=== PATIENT | female | born 1965 | race Caucasian/White ===

== ENCOUNTER 2020-03-03 09:20 | Outpatient (CLI) | payer SELFPAY ==
[2020-03-03 12:14] LABS: SARS-CoV-2 Ag Negative (Negative)
== END 2020-03-03 09:21 | disposition home or self-care (01) ==
PROVIDERS: PCP Internal Medicine; Visit Provider Internal Medicine
DX: Z20.828 Contact with and (suspected) exposure to other viral communicable diseases (principal)
CPT/HCPCS: 87426

== ENCOUNTER 2020-11-17 07:32 | Outpatient (CLI) | payer OTHER, SELFPAY ==
[2020-11-17 07:51] LABS: Basophils Absolute Auto 0.03 K/mm3 (0.00-0.10); Basophils Percent Auto 0.7 % (0.0-1.0); Eosinophils Absolute Auto 0.09 K/mm3 (0.02-0.50); Hematocrit 40.5 % (35.0-49.0); Hemoglobin 13.2 g/dL (12.0-15.0); Immature Granulocyte Absolute 0.01 K/mm3 (0.00-0.00); Immature Granulocyte Percent A 0.2 % (0.0-0.0); Lymphocytes Absolute Auto 1.65 K/mm3 (1.10-4.50); Lymphocytes Percent Auto 36.4 % (18.0-42.0); Mean Corpuscular HGB Conc 32.6 g/dL (32.0-36.0); Mean Corpuscular Hemoglobin 30.8 pg (27.0-31.0); Mean Corpuscular Volume 94.6 fL (78.0-102.0); Mean Platelet Volume 10.3 fl (9.2-11.8); Monocytes Absolute Auto 0.36 K/mm3 (0.10-0.90); Monocytes Percent Auto 7.9 % (2.0-11.0); Neutrophils Absolute Auto 2.4 K/mm3 (1.7-7.2); Neutrophils Percent Auto 52.8 % (50.0-70.0); Platelet Count Result 210 K/mm3 (150-420); Red Blood Count 4.28 M/mm3 (4.20-5.40); Red Cell Distribution Width 12.9 % (11.6-14.4); White Blood Count 4.5 K/mm3 (4.8-10.8)
[2020-11-17 07:52] LABS: Add Urine Microscopic? YES; Appearance Urine Clear (Clear); Bilirubin Urine Negative (Negative); Blood Urine Negative (Negative); Color Urine Light Yellow (Yellow); Glucose Urine UA Negative (Negative); Ketones Urine Negative (Negative); Leukocyte Esterase Ur 1+ (Negative); Nitrate Urine Negative (Negative); Protein Urine Negative (Negative); Urobilinogen Urine 0.2 mg/dL (0.2-1.0)
[2020-11-17 07:57] LABS: Bacteria Urine Trace /hpf; RBC Urine None seen /hpf (0-2); Squamous Epithelial Cell Urine Rare /hpf (Few)
[2020-11-17 09:07] LABS: Alanine Aminotransferase 21 U/L (14-59); Albumin Level 3.7 g/dL (3.4-5.0); Alkaline Phosphatase 92 U/L (46-116); Anion Gap 10 mmol/L (8-16); Aspartate Amino Transferase 16 U/L (15-37); Bilirubin,Total 0.5 mg/dL (0.00-1.00); Blood Urea Nitrogen 12 mg/dL (7-18); Calcium 8.4 mg/dL (8.5-10.1); Carbon Dioxide 28 mmol/L (21-32); Chloride 106 mmol/L (98-108); Cholesterol 208 mg/dL (0-200); Estimated Glomerular Filt Rate > 60; Glucose 113 mg/dL (70-99); HDL Direct 52 mg/dL (40-60); LDL Cholesterol Calculated 137 mg/dL (<130); Osmolality Calculated 298 mOsm/kg (285-295); Potassium 4.2 mmol/L (3.5-5.1); Sodium 144 mmol/L (136-145); Thyroid Stimulating Hormone 1.29 uIU/mL (0.36-3.74); Total Protein 6.7 g/dL (6.4-8.2); Triglycerides 95 mg/dL (0-150)
== END 2020-11-17 07:33 | disposition home or self-care (01) ==
LOC: CHSLAB 07:35
PROVIDERS: PCP Internal Medicine; Visit Provider Internal Medicine
DX: Z00.00 Encounter for general adult medical examination without abnormal findings (principal); M81.0 Age-related osteoporosis without current pathological fracture
CPT/HCPCS: 36415; 80053; 80061; 81001; 84443; 85025

== ENCOUNTER 2020-11-23 12:24 | Outpatient (CLI) | payer OTHER, SELFPAY ==
--- NOTE | ~2020-11-23 | DEXA_ITS ---
Bone Density Report Name: Barbara Ceja Age: 55 Sex: Female Ethnicity: White Date of : 1965 Indication: screening for osteoporosis; asthma or emphysema; Referring Provider: Duong Gale Study: Bone densitometry was performed. Exam Date: November 23, 2020 Accession number: [id number] Bone Density: Region BMD T-score Z-score Classification AP Spine(L1-L4) 1.030 -0.2 1.1 Normal Femoral Neck (Left) 0.658 -1.7 -0.6 Osteopenia Total Hip (Left) 0.834 -0.9 -0.1 Normal Femoral Neck (Right) 0.644 -1.8 -0.7 Osteopenia Total Hip (Right) 0.813 -1.1 -0.3 Osteopenia Femoral Neck Mean 0.651 -1.8 -0.6 Osteopenia Total Hip Mean 0.823 -1.0 -0.2 Normal World Health Organization criteria for BMD impression classify patients as: Normal (T-score at or above -1.0), Osteopenia (T-score between -1.0 and -2.5), or Osteoporosis (T-score at or below -2.5). 10-year Fracture Risk: FRAX not reported because: Premenopausal woman Clinical Information Provided by Patient: Has used the following medications: Vitamin D, ESCALIPRAM Has the following medical conditions: Asthma or Emphysema Menopause Age: 48 Does not regularly consume dairy products Drinks caffeinated beverages Onset of menses at age 11 Premenopausal Number of children 2 Impression: The patient's bone mass is within expected range for age, gender and ethnicity. Discussion: BONE DENSITY IS WITHIN EXPECTED LIMITS FOR AGE, SEX AND RACE. Bone density is within expected limits for age, sex and race at all sites measured. The patient should follow a healthful lifestyle (good nutrition with adequate calcium and vitamin D, and appropriate weight-bearing exercise). Follow-Up: Consider repeating this study in 2 to 3 years to reassess this patient's status, or sooner if there is some new clinical indication. Reported by: Dr. Eliceo Blue on 11/23/2020 1:00:00 PM. Reviewed, dictated and finalized at location A. [facility]
--- NOTE | ~2020-11-23 | MM_ITS ---
EXAMINATION: MM screening derrick BI w china HISTORY: Screening TECHNIQUE: Craniocaudal and mediolateral oblique 3-D tomosynthesis images were obtained and synthetic 2-D images were generated. CAD analysis was submitted and interpreted. COMPARISON: No prior mammogram is available for comparison at this institution. BREAST PARENCHYMAL COMPOSITION: There are scattered areas of fibroglandular density. FINDINGS: There is no evidence of suspicious mass, calcification, or architectural distortion to sugg est malignancy in either breast. There has been no suspicious interval change. IMPRESSION: 1. No mammographic evidence of malignancy. 2. Recommend routine screening mammography in one year. BI-RADS Category 1: Negative Reviewed, dictated and finalized at location A.
== END 2020-11-23 12:25 | disposition home or self-care (01) ==
LOC: CHSIMG 12:26
PROVIDERS: PCP Internal Medicine; Visit Provider Internal Medicine
DX: Z12.31 Encounter for screening mammogram for malignant neoplasm of breast (principal); M81.0 Age-related osteoporosis without current pathological fracture
CPT/HCPCS: 77063; 77067; 77080

== ENCOUNTER 2020-11-29 09:20 | Outpatient (CLI) | payer OTHER, SELFPAY ==
[2020-11-29 09:48] LABS: Add Urine Microscopic? YES; Appearance Urine Clear (Clear); Bilirubin Urine Negative (Negative); Blood Urine Negative (Negative); Color Urine Light Yellow (Yellow); Glucose Urine UA Negative (Negative); Ketones Urine Negative (Negative); Leukocyte Esterase Ur 1+ (Negative); Nitrate Urine Negative (Negative); Protein Urine Negative (Negative); Urobilinogen Urine 0.2 mg/dL (0.2-1.0)
[2020-11-29 10:00] LABS: RBC Urine 0-2 /hpf (0-2); Squamous Epithelial Cell Urine Few /hpf (Few); WBC Urine 0-3 /hpf (0-3)
[2020-11-29 10:01] LABS: Bacteria Urine Trace /hpf
== END 2020-11-29 09:21 | disposition home or self-care (01) ==
LOC: CHSLAB 09:23
PROVIDERS: PCP Internal Medicine; Visit Provider Internal Medicine
DX: R30.0 Dysuria (principal)
CPT/HCPCS: 81001; 87086; 87088

== ENCOUNTER 2021-04-10 12:57 | Outpatient (CLI) | payer OTHER, SELFPAY ==
--- NOTE | ~2021-04-10 | US_ITS ---
EXAMINATION: US soft tissue UE RT DATE: 04/10/2021 13:18 INDICATION: Right upper lobe mass TECHNIQUE: Multiple grayscale and Doppler ultrasound images of the region of concern at the anterior right upper arm were obtained. COMPARISON: None FINDINGS/IMPRESSION: There is a 5.6 x 2.3 x 3.9 cm relatively well-defined solid mass within the more hypoechoic biceps mu scle. This is nonspecific and could represent either a benign neoplasm such as intramuscular lipoma o r malignancy. Would recommend further evaluation with pre and postcontrast MRI. Reviewed, dictated and finalized at [facility]. [employer]ING BUSINESS ANALYST
== END 2021-04-10 12:58 | disposition home or self-care (01) ==
LOC: CHSIMG 12:59
PROVIDERS: PCP Internal Medicine; Visit Provider Surgery
DX: R22.31 Localized swelling, mass and lump, right upper limb (principal)
CPT/HCPCS: 76882

== ENCOUNTER 2023-01-10 10:50 | Outpatient (CLI) | payer BC, SELFPAY ==
--- NOTE | ~2023-01-10 | CT_ITS ---
Non-contrast CT scan of the Abdomen and Pelvis Clinical indication: Right upper quadrant pain Technique: 2.5 mm axial scans were obtained through the abdomen and pelvis without intravenous or or al contrast. Dose reduction technique was used on this scan by utilizing automated exposure control a nd iterative reconstruction technique. The dose-length product (DLP) was 280.39 mGy-cm. Findings: Images through the lung bases reveal calcified left lower lobe granuloma. There is no evidence of renal or ureteral calculi. The kidneys and the ureters are nondilated. The liver, spleen, pancreas, gallbladder, and adrenals appear normal. There is no aortic aneurysm. There is no evidence of bowel obstruction. Normal appendix. Images through the pelvis were performed. There is no evidence of ascites or lymphadenopathy. Urinary bladder unremarkable. No adnexal mass evident. No ascites. Impression: No significant abnormality seen. Reviewed, dictated and finalized at [facility]. Impression: No significant abnormality seen.
--- NOTE | ~2023-01-10 | MM_ITS ---
EXAMINATION: MM screening derrick BI w china HISTORY: Screening TECHNIQUE: Craniocaudal and mediolateral oblique 3-D tomosynthesis images were obtained and synthetic 2-D images were generated. CAD analysis was submitted and interpreted. COMPARISON: Comparison to multiple prior studies sequentially, with oldest reviewed study dated 09/14. BREAST PARENCHYMAL COMPOSITION: There are scattered areas of fibroglandular density. FINDINGS: There is no evidence of suspicious mass, calcification, or architectural distortion to sugg est malignancy in either breast. There has been no suspicious interval change. IMPRESSION: 1. No mammographic evidence of malignancy. 2. Recommend routine screening mammography in one year. BI-RADS Category 1: Negative Reviewed, dictated and finalized at location A.
--- NOTE | ~2023-01-10 | DEXA_ITS ---
Bone Density Report Name: ERNIE GAMA Age: 57 Sex: Female Ethnicity: White Date of : 1965 Indication: postmenopausal; screening for osteoporosis; prior fracture; asthma or emphysema; Referring Provider: Duong Gale Study: Bone densitometry was performed. Exam Date: January 10, 2023 Accession number: [id number] Bone Density: Region BMD T-score Z-score Classification AP Spine(L1-L4) 1.031 -0.1 1.2 Normal Femoral Neck (Left) 0.594 -2.3 -1.0 Osteopenia Total Hip (Left) 0.848 -0.8 0.1 Normal Femoral Neck (Right) 0.588 -2.3 -1.1 Osteopenia Total Hip (Right) 0.822 -1.0 -0.1 Normal Femoral Neck Mean 0.591 -2.3 -1.1 Osteopenia Total Hip Mean 0.835 -0.9 0.0 Normal World Health Organization criteria for BMD impression classify patients as: Normal (T-score at or above -1.0), Osteopenia (T-score between -1.0 and -2.5), or Osteoporosis (T-score at or below -2.5). 10-year Fracture Risk(1): Major Osteoporotic Fracture 17% Hip Fracture 2.8% Reported Risk Factors: [place] (), Neck BMD=0.588, BMI=26.7, previous fracture (1) FRAX(R) Version 3.08. Fracture probability calculated for an untreated patient. Fracture probability may be lower if the patient has received treatment. Clinical Information Provided by Patient: Has had a low trauma fracture Has used the following medications: Vitamin D, ESCALIPRAM Has the following medical conditions: Asthma or Emphysema Patient maximum height was 60 Menopause Age: 48 No regular weight bearing exercise Does not regularly consume dairy products Drinks caffeinated beverages Onset of menses at age 10 Number of children 2 Impression: The patient has low bone mass, based on the Left Femoral Neck T-score. The patient has risk factors, including: previous fracture. Discussion: BONE DENSITY IS LOW AT ONE OR MORE SKELETAL SITES. This patient's lowest T-score is low at one or more skeletal sites. It meets the World Health Organization's (WHO) criteria for ?low bone mass? (T-score between -1.0 and -2.5). The patient's 10-year risk of fracture as calculated by FRAX is less than the threshold where pharmacological therapy is recommended by the National Osteoporosis Foundation (NOF). However, all treatment decisions require clinical judgment and consideration of individual patient factors, including patient preferences, comorbidities, previous drug use, risk factors not captured in the FRAX model (e.g., frailty, falls, vitamin D deficiency, increased bone turnover, interval significant decline in bone density) and possible under or overestimation of fracture risk by FRAX. The patient should follow a healthful lifestyle (good nutrition with adequate calcium and vitamin D, and appropriate weight-bearing exercise). Follow-Up: C
== END 2023-01-10 10:51 | disposition home or self-care (01) ==
LOC: CHSIMG 10:53
PROVIDERS: PCP Internal Medicine; Visit Provider Internal Medicine
DX: Z12.31 Encounter for screening mammogram for malignant neoplasm of breast (principal); R10.11 Right upper quadrant pain; M81.0 Age-related osteoporosis without current pathological fracture; M85.89 Other specified disorders of bone density and structure, multiple sites
CPT/HCPCS: 74176; 77063; 77067; 77080

== ENCOUNTER 2023-01-14 10:40 | Outpatient (RCR) | payer BC, SELFPAY ==
--- NOTE | 2023-01-14 13:59 | OPREHPOC ---
Outpatient Therapy Plan of Care This is a Multidisciplinary Plan of Care that may contain components documented by all disciplines (PT, OT, and ST.) PT Problem 1 PT Problem #1 Knowledge Deficit PT Goal 1 Goal 1. independent and compliant with HEP Target Visit 4 PT Problem 2 PT Problem #2 Pain PT Goal 1 Goal 1. patient to report no more than 1/10 pain in the R lower quadrant in the last week. Target Visit 9 PT Problem 3 PT Problem #3 Impaired Strength PT Goal 1 Goal 1. improve bilateral hip strength to 4+/5 or better 2. improve bilateral ankle DF to 4+/5 or better Target Visit 9 PT Problem 4 PT Problem #4 Impaired Functional Mobil PT Goal 1 Goal 1. LEFS to display less than 8% functional deficits 2. patient to complete full work days without pain 3. safe squat and lift mechanics of 40lbs from floor to waist Target Visit 9
--- NOTE | 2023-01-14 13:59 | PTOPEVAL1 ---
Assessment and note entered by JT File, PT Evaluation Information Assessment Status Evaluation Diagnosis R side pain, R lower quadrant pain Onset 01/10/23 Subjective Information patient reports she is having pain in the R lower quadrant of her abdomen. she reports her PCP believes it is muscle. she reports no injury or change in activity that she remembers at the time in began hurting. she reports she has increased pain in the R lower abdomen with reaching overhead . she reports she has to reach like this at work. she is in housekeeping at a hotel. she reports no increased pain when coughing or laughing. she reports no bowel or bladder changes. she reports it does not get better with pressure over the area of pain. she reports she did have an CT abdomen. Reported Pain Level Pain Score 5: Self Report Assessment PT Clinical Summary mrs. daley presents to skilled PT services for evaluation of R lower quadrant pain of the abdomen . she presents with signs and symptoms of illiacus mm strain, rectus mm strain, and lumbar degenerative disc disease. she displays deficits in rom, strength, and functional activity performance. she would benefit from continued skilled PT to improve her objective/functional deficits and return to her prior level functional activity performance/quality of life. Plan of Care Interventions Electrical Stimulation,Gait Training,Hot Pack/Cold Pack,Manual Therapy,Neuro Re-education,Patient/ Caregiver Educati,Therapeutic Activities, Therapeutic Exercise PT Services Indicated Yes Treatment Frequency and 3x weekly for 9 visits Duration These treatments will address the objective and functional deficits as defined above. The patient will be advanced safely and appropriately in order for the patient to progress towards his/her prior level of function. Additional exercises will be introduced and as well as a comprehensive home exercise program upon discharge, if needed, ?to ensure carryover of functional gains achieved in the clinic. This treatment plan has been reviewed and agreement upon by the patient.
--- NOTE | 2023-01-31 11:06 | OPREHPOC ---
Outpatient Therapy Plan of Care This is a Multidisciplinary Plan of Care that may contain components documented by all disciplines (PT, OT, and ST.) PT Problem 1 PT Problem #1 Knowledge Deficit PT Goal 1 Goal 1. independent and compliant with HEP Target Visit 4 Progress Met PT Problem 2 PT Problem #2 Pain PT Goal 1 Goal 1. patient to report no more than 1/10 pain in the R lower quadrant in the last week. Target Visit 9 Progress Not Met PT Problem 3 PT Problem #3 Impaired Strength PT Goal 1 Goal 1. improve bilateral hip strength to 4+/5 or better 2. improve bilateral ankle DF to 4+/5 or better Target Visit 9 Progress Not Met PT Problem 4 PT Problem #4 Impaired Functional Mobil PT Goal 1 Goal 1. LEFS to display less than 8% functional deficits 2. patient to complete full work days without pain 3. safe squat and lift mechanics of 40lbs from floor to waist Target Visit 9 Progress Not Met
--- NOTE | 2023-01-31 11:06 | PTOPDC ---
Assessment and note entered by Annalee Serrano DPT Evaluation Information Assessment Status Re-evaluation Diagnosis R side pain, R lower quadrant pain Onset 01/10/23 Subjective Information Patient reports little change since start of PT. She reports she continues to have pain with reaching. She reports she would like to make today her last session Reported Pain Level Pain Score 5,3: Self Report Pain Score 3,5: Self Report Assessment PT Clinical Summary Patient attended 9 visits of skilled PT with little progress towards goals. She continues to have pain with twisting and reaching over head needed for house hold and work duties. She reports she is independent with HEP. She would like to discharge at this time and follow up with MD. Plan of Care PT Services Indicated No
== END 2023-01-31 15:58 | disposition home or self-care (01) ==
LOC: CHSPT 10:40
PROVIDERS: PCP Internal Medicine; Visit Provider Internal Medicine
DX: M79.18 Myalgia, other site (principal)
CPT/HCPCS: 97110; 97140; 97150; 97161

== ENCOUNTER 2024-03-15 12:12 | Outpatient (CLI) | payer BC, SELFPAY ==
--- NOTE | ~2024-03-15 | MM_ITS ---
EXAMINATION: MM screening derrick BI w china HISTORY: Screening TECHNIQUE: Craniocaudal and mediolateral oblique 3-D tomosynthesis images were obtained and synthetic 2-D images were generated. CAD analysis was submitted and interpreted. COMPARISON: Comparison to multiple prior studies sequentially, with oldest reviewed study dated 09/14. BREAST PARENCHYMAL COMPOSITION: Not dense: There are scattered areas of fibroglandular density. FINDINGS: There is no evidence of suspicious mass, calcification, or architectural distortion to sugg est malignancy in either breast. There has been no suspicious interval change. IMPRESSION: 1. No mammographic evidence of malignancy. 2. Recommend routine screening mammography in one year. BI-RADS Category 1: Negative Reviewed, dictated and finalized at location B. [facility]
== END 2024-03-15 12:13 | disposition home or self-care (01) ==
LOC: CHSIMG 12:16
PROVIDERS: PCP Internal Medicine; Visit Provider Internal Medicine
DX: Z12.31 Encounter for screening mammogram for malignant neoplasm of breast (principal)
CPT/HCPCS: 77063; 77067